=== PATIENT | female | born 1955 | race Caucasian/White ===

== ENCOUNTER → 2016-04-23 | Outpatient (CLI) | payer BC ==
--- NOTE | 2016-04-24 13:07 | NM ---
EXAMINATION TYPE: NM thyroid image w uptake DATE OF EXAM: 04/24/2016 12:16 PM COMPARISON: NONE HISTORY: Subclinical hypothyroidism per order TECHNIQUE: After the intravenous administration of 9.5 mCi Tc 99m Sodium Pertechnetate, thyroid imagi ng is [id number] minutes post injection. Thyroid iodine uptake is calculated after the oral administ ration of 17 uCi I-131 capsule. FINDINGS: There is normal distribution of activity throughout the gland. The 4 hour iodine uptake is calculated at 6% slightly diminished from the normal range (normal range 8-14%). The 24-hour iodine uptake is calculated at 21% within the normal range (normal range 15-35%). IMPRESSION: Normal thyroid scan and uptake at 24 hours. Finding of diminished uptake at 4 hours is of uncertain significance.
== END | disposition home or self-care (01) ==
LOC: RADNMMAIN 11:21
PROVIDERS: ATTEND Internal Medicine Endocrinology, Diabetes & Metabolism
DX: E05.90 Thyrotoxicosis, unspecified without thyrotoxic crisis or storm (principal); E04.2 Nontoxic multinodular goiter
CPT/HCPCS: 78014; A9528; A9512

== ENCOUNTER → 2016-04-24 | Outpatient (CLI) | payer BC | END | disposition home or self-care (01) | LOC: LABWHC1 12:39 | PROVIDERS: ATTEND Internal Medicine Endocrinology, Diabetes & Metabolism | DX: E04.2 Nontoxic multinodular goiter (principal); E05.90 Thyrotoxicosis, unspecified without thyrotoxic crisis or storm | CPT/HCPCS: 36415; 84439; 84443; 84445; 84480 ==

== ENCOUNTER → 2021-02-05 | Outpatient (CLI) | payer MEDICARE ==
--- NOTE | 2021-02-05 12:08 | XR ---
EXAMINATION TYPE: XR shoulder complete RT DATE OF EXAM: 02/05/2021 CLINICAL HISTORY: pain TECHNIQUE: Three views of the right shoulder are obtained. COMPARISON: None FINDINGS: There is no acute fracture/dislocation evident. The acromioclavicular and glenohumeral deniz int spaces appear within normal limits. The visualized ribs are intact and unremarkable. IMPRESSION: 1. There is no acute fracture or dislocation. ICD 10 NO FRACTURE, INITIAL EVALUATION
== END | disposition home or self-care (01) ==
LOC: RADXRMAIN 11:39
PROVIDERS: ATTEND Internal Medicine
DX: M25.511 Pain in right shoulder (principal)

== ENCOUNTER → 2021-03-26 | Outpatient (CLI) | payer MEDICARE ==
[2021-03-26 21:08] LABS: Basophils # (A) 0.04 X 10*3/uL (0.00-0.10); Basophils % (A) 0.4 %; Eosinophils # (A) 0.17 X 10*3/uL (0.04-0.35); Eosinophils % (A) 1.8 %; HCT 36.1 % (37.2-46.3); HGB 11.5 g/dL (12.0-15.0); Lymphocytes % (A) 21.1 %; MCH 29.2 pg (27.0-32.0); MCHC 31.9 g/dL (32.0-37.0); MCV 91.6 fL (80.0-97.0); Mean Platelet Volume 10.8 fL (9.5-12.2); Monocytes # (A) 0.78 X 10*3/uL (0.20-1.00); Monocytes % (A) 8.2 %; Neutrophils # (A) 6.46 X 10*3/uL (1.80-7.70); Neutrophils % (A) 68.2 %; Platelet Count 448 X 10*3/uL (140-440); RBC 3.94 X 10*6/uL (4.10-5.20); RDW 13.4 % (11.5-14.5); WBC 9.48 X 10*3/uL (4.50-10.00)
[2021-03-26 23:40] LABS: ALT 32 U/L (8-44); AST 28 U/L (13-35); African American GFR (CKD) 112.4 (60.0-200.0); Albumin/Globulin Ratio 1.33 (1.60-3.17); Alkaline Phosphatase 160 U/L (41-126); BUN/Creat Ratio 7.43 Ratio (12.00-20.00); Blood Urea Nitrogen 4.5 mg/dL (9.0-27.0); Calcium 9.4 mg/dL (8.7-10.3); Carbon Dioxide 24.8 mmol/L (20.0-27.5); Chloride 102 mmol/L (96-109); Chol/HDL Ratio 2.95 Ratio; Glucose 96 mg/dL (70-110); Sodium 139 mmol/L (135-145); Total Bilirubin <0.20 mg/dL (0.30-1.20); VLDL Calculation 15.72 mg/dL (5.00-40.00)
== END | disposition home or self-care (01) ==
LOC: LABWHC1 13:53
PROVIDERS: ATTEND Internal Medicine
DX: Z86.39 Personal history of other endocrine, nutritional and metabolic disease (principal)
CPT/HCPCS: 36415; 80053; 80061; 84439; 84443; 84481; 85025

== ENCOUNTER → 2021-05-09 | Outpatient (CLI) | payer MEDICARE ==
--- NOTE | 2021-05-09 12:43 | US ---
EXAMINATION TYPE: US thyroid st tissue head/neck DATE OF EXAM: 05/09/2021 COMPARISON: Correlation nuclear medicine scan 04/24/2016 CLINICAL HISTORY: 65-year-old female E05.90 subclinical hyperthyroidism. TECHNIQUE: Multiple sonographic images of the thyroid gland are obtained. FINDINGS: GLAND SIZE: Right Lobe: 4.2 x 1.3 x 1.5 cm Overall Parenchyma: homogenous Left Lobe: 4.2 x 1.2 x 1.3 cm Overall Parenchyma: homogeneous Isthmus Thickness: 0.2 cm NODULES RIGHT: # of nodules measured on right: 0 LEFT: # of nodules measured on left: 0 ISTHMUS: # of nodules measured in the isthmus: 0 Bilateral neck scanned, no evidence of lymphadenopathy. IMPRESSION: Unremarkable sonographic examination of the thyroid gland. No discrete nodules.
== END | disposition home or self-care (01) ==
LOC: RADUSWWP 09:57
PROVIDERS: ATTEND Internal Medicine
DX: E05.90 Thyrotoxicosis, unspecified without thyrotoxic crisis or storm (principal)
CPT/HCPCS: 76536

== ENCOUNTER → 2021-05-16 | Outpatient (CLI) | payer MEDICARE ==
--- NOTE | 2021-05-16 16:54 | BD ---
EXAMINATION TYPE: Axial Bone Density DATE OF EXAM: 05/16/2021 COMPARISON: NONE CLINICAL HISTORY: Height: 64 Weight: 108.4 FRAX RISK QUESTIONS: Alcohol (3 or more units per day): no Family History (Parent hip fracture): no Glucocorticoids (More than 3mos): no (Ex: prednisone, prednisolone, methylprednisolone, dexamethasone, and hydrocortisone). History of Fracture in Adulthood: no Secondary Osteoporosis: 1. Type 1 Diabetes: no 2. Hyperthyroidism: yes 3. Menopause before 45: no 4. Malnutrition: no 5. Chronic liver disease: no Rheumatoid Arthritis: no Current Tobacco Use: yes RISK FACTORS HISTORY OF: Surgery to Spine/Hip(right/left)/Wrist (right/left): lumbar spine When: Family History of Osteoporosis: no Active: yes Diet low in dairy products/other sources of calcium: yes Postmenopausal woman: yes Lost more than 2 inches in height since high school: no MEDICATIONS: Additional History: EXAM MEASUREMENTS: Bone mineral densitometry was performed using the [employer]. Bone mineral density about the R hip (g/cm2): 0.846 Bone mineral density about the L hip (g/cm2): 0.829 T Score values are as follows: -----R Neck: -1.4 -----L Neck: -1.5 -----R Total: -1.5 -----L Total: -1.5 Bone mineral density : baseline Bone mineral density about the L Wrist (g/cm2): 0.581 T Score values are as follows: -----Dist. R+U: -1.2 -----Prox. R+U: -1.2 -----Radius total: -1.5 Bone mineral density : baseline IMPRESSION: Osteopenia (T Score between -2.5 and -1). There is slightly increased risk of fracture and the patient may be considered for treatment. Re-Screen 2-5 years. NOTE: T-SCORE=SD OF THE YOUNG ADULT MEAN.
== END | disposition home or self-care (01) ==
LOC: RADBDWWP 10:09
PROVIDERS: ATTEND Internal Medicine
DX: M85.89 Other specified disorders of bone density and structure, multiple sites (principal); Z78.0 Asymptomatic menopausal state
CPT/HCPCS: 77080